=== PATIENT | male | born 1970 | race Caucasian/White ===

== ENCOUNTER → 2020-05-13 | Outpatient (CLI) | payer BC | LOC: OD 10:51 | PROVIDERS: ATTEND Surgery | DX: Z03.818 Encounter for observation for suspected exposure to other biological agents ruled out (principal); N18.6 End stage renal disease | CPT/HCPCS: U0003; C9803; 87635 ==

== ENCOUNTER → 2020-06-02 | Outpatient (CLI) | payer BC ==
[2020-06-02 17:24] LABS: BLOOD UREA NITROGEN 85 mg/dL (7-20)
== END ==
LOC: OD 16:15
PROVIDERS: ATTEND Internal Medicine Nephrology
DX: N18.6 End stage renal disease (principal)
CPT/HCPCS: 36415; 82565; 84520